=== PATIENT | female | born 1965 | race Caucasian/White ===

== ENCOUNTER 2017-01-29 09:42 | Emergency (ER) | payer OTHER, BC ==
[~2017-01-29] VITALS: Ht 149.9 cm; Wt 60.0 kg
[2017-01-29 09:49] VITALS: BP 132/86; PULSE 83; RESP 16; TEMP 99; O2SAT 99
[2017-01-29] MEDS ORDERED: HYDROmorphone HCL PF 1 MG/ML VIAL IVS ONE (10:00)
[2017-01-29] MEDS ORDERED: ONDANSETRON HCL 4 MG/2 ML VIAL IVP ONE (10:00)
[2017-01-29] MEDS ORDERED: SODIUM CHLORIDE 0.9% FLUSH 10 ML FLUSH IVF PRN (10:00)
[2017-01-29] MEDS ORDERED: ALBUAER3 INH (10:01)
[2017-01-29] MEDS ORDERED: AZEL0.055 EACH NARE (10:01)
[2017-01-29] MEDS ORDERED: SYMB160A INH (10:01)
[2017-01-29] MEDS ORDERED: FLUT50SP EACH NARE (10:01)
--- NOTE | 2017-01-29 10:04 | PD ---
HPI Chief Complaint: Headache Time Seen by Provider: 09:57 Travel History International Travel<30 days: No Contact w/Intl Traveler<30days: No Traveled to known affect area: No History of Present Illness HPI Patient presents with complaints of severe headache that started after cervical adjustment by her PCP. Denies any aura. Denies any photophobia. Denies any nausea or vomiting. Headache is diffuse without localization. It is not the worst headache she's ever had. History of intermittent headaches over the last several years. Evaluated by neurology with imaging which was negative. Patient was not diagnosed with migraines. Denies . PFSH Past Medical History Diminished Hearing: No Headaches: Yes Tetanus Vaccination: Unknown ?: Not LMP: MENOPAUSAL Past Surgical History Tonsillectomy: Yes Social History Alcohol Use: Yes (RARE) Tobacco Use: No Substance Use: No Allergies-Medications (Allergen,Severity, Reaction): Coded Allergies: No Known Allergies (Unverified , 01/29/17) Reported Meds & Prescriptions Reported Meds & Active Scripts Active Reported Azelastine Nasal [place] (Azelastine HCl) 0.15% [place] 1 [place] EACH NARE DAILY To each nostril. Proair Hfa 8.5 GM Inh (Albuterol Sulfate) 90 Mcg/Act Aer 1 Puff INH Q4H PRN 108 mcg/actuation Fluticasone Nasal [place] 50 Mcg/Act Naspr 50 Mcg EACH NARE BID 50 mcg/spray Symbicort Inh (Budesonide/Formoterol Fumarate) 160-4.5 Mcg/Act Aero 2 Puff INH BID Review of Systems General / Constitutional: No: Fever Eyes: No: Visual changes HENT: Positive: Headaches Cardiovascular: No: Chest Pain or Discomfort Respiratory: No: Shortness of Breath Gastrointestinal: No: Abdominal Pain Genitourinary: No: Dysuria Musculoskeletal: No: Pain Skin: No Rash Neurologic: No: Weakness Psychiatric: No: Depression Endocrine: No: Polydipsia Hematologic/Lymphatic: No: Easy Bruising Physical Exam Narrative GENERAL: Well-nourished, well-developed patient. SKIN: Focused skin assessment warm/dry. HEAD: Normocephalic. Examination of the cervical spine reveals no midline tenderness no paraspinous pain good range of motion EYES: No scleral icterus. No injection or drainage. NECK: Supple, trachea midline. No JVD or lymphadenopathy. CARDIOVASCULAR: Regular rate and rhythm without murmurs, gallops, or rubs. RESPIRATORY: Breath sounds equal bilaterally. No accessory muscle use. GASTROINTESTINAL: Abdomen soft, non-tender, nondistended. MUSCULOSKELETAL: No cyanosis, or edema. BACK: Nontender without obvious deformity. No CVA tenderness. Data Data Last Documented VS Vital Signs Date Time Temp Pulse Resp B/P Pulse Ox O2 Delivery O2 Flow Rate FiO2 01/29/17 10:25 89 16 145/76 99 Room Air 01/29/17 09:49 99.0 Orders Complete Blood Count With Diff (01/29/17 09:57) Comprehensive Metabolic Panel (01/29/17 09:57) [place]gren Sedimentation Rate (01/29/17 09:57) Iv Access Insert/Monitor (01/29/17 09:57) Oximetry (01/29/17 09:57) Sodium Chloride 0.9% Flush (Ns Flush) (01/29/17 10:00) Ondansetron Inj (Zofran Inj) (01/29/17 10:00) Hydromorphone Pf Inj (Dilaudid Pf Inj) (01/29/17 10:00) Hydromorphone Pf Inj (Dilaudid Pf Inj) (01/29/17 11:00) Labs Laboratory Tests Test 01/29/17 10:00 White Blood Count 7.0 TH/MM3 Red Blood Count 4.81 MIL/MM3 Hemoglobin 14.3 GM/DL Hematocrit 42.5 % Mean Corpuscular Volume 88.3 FL Mean Corpuscular Hemoglobin 29.7 PG Mean Corpuscular Hemoglobin 33.7 % Concent Red Cell Distribution Width 12.0 % Platelet Count 246 TH/MM3 Mean Platelet Volume 7.3 FL Neutrophils (%) (Auto) 72.3 % Lymphocytes (%) (Auto) 18.4 % Monocytes (%) (Auto) 6.9 % Eosinophils (%) (Auto) 1.6 % Basophils (%) (Auto) 0.8 % Neutrophils # (Auto) 5.0 TH/MM3 Lymphocytes # (Auto) 1.3 TH/MM3 Monocytes # (Auto) 0.5 TH/MM3 Eosinophils # (Auto) 0.1 TH/MM3 Basophils # (Auto) 0.1 TH/MM3 CBC Comment DIFF FINAL Differential Comment Erythrocyte Sedimentation Rate 4 mm/hr Sodium Level 143 MEQ/L Potassium Level 3.5 MEQ/L Chloride Level 108 MEQ/L Carbon Dioxide Level 30.4 MEQ/L Anion Gap 5 MEQ/L Blood Urea Nitrogen 10 MG/DL Creatinine 0.82 MG/DL Estimat Glomerular Filtration 73 ML/MIN Rate Random Glucose 122 MG/DL Calcium Level 8.4 MG/DL Total Bilirubin 0.4 MG/DL Aspartate Amino Transf 17 U/L (AST/SGOT) Alanine Aminotransferase 24 U/L (ALT/SGPT) Alkaline Phosphatase 81 U/L Total Protein 7.1 GM/DL Albumin 3.8 GM/DL [facility] Medical Decision Making Medical Screen Exam Complete: Yes Emergency Medical Condition: Yes Differential Diagnosis Tension headache, cluster headache, CVA, migraine Narrative Course Assessment and plan discussed with patient and at bedside. Headache resolved with pain medication. Diagnosis Primary Impression: Cephalgia Qualified Code: R51 - Nonintractable episodic headache, unspecified headache type Patient Instructions: General Instructions Additional Instructions: Encouraged rest fluids and Motrin. Follow-up with PCP. Continue with neurology. Return to the emergency room with any worsening of symptoms. Med/Other Pt SpecificInfo: Prescription(s) given Scripts Ikresqcdur-Uukbjdc-Dknuohkc-Codeine (Fiorinal-Codeine #3)[id number] Mg Cap1-2 Cap PO Q4H PRN (HEADACHE) #20 CAP Ref 0 Do not exceed 6 capsules/day. Prov:James Esquivel MD 01/29/17 Disposition: 01 DISCHARGE HOME Condition: Good James Esquivel MD Jan 29, 2017 10:03
[2017-01-29 10:12] VITALS: PULSE 115; RESP 16; O2SAT 100
[2017-01-29 10:15] LABS: BASOPHIL # 0.1 TH/MM3 (0-0.2); BASOPHIL % 0.8 % (0.0-2.0); EOSINOPHIL # 0.1 TH/MM3 (0-0.4); EOSINOPHIL % 1.6 % (0.0-4.0); HEMATOCRIT 42.5 % (35.0-46.0); HEMO FLAGS DIFF FINAL; LYMPH % 18.4 % (9.0-44.0); LYMPHOCYTE # 1.3 TH/MM3 (1.0-4.8); MEAN CELL VOLUME 88.3 FL (80.0-100.0); MEAN CORPUSCULAR HEMOGLOBIN 29.7 PG (27.0-34.0); MEAN CORPUSCULAR HGB CONC 33.7 % (32.0-36.0); MONO % 6.9 % (0.0-8.0); NEUT % 72.3 % (16.0-70.0); PLATELET COUNT 246 TH/MM3 (150-450); RED BLOOD COUNT 4.81 MIL/MM3 (4.00-5.30)
[2017-01-29 10:21] LABS: CHLORIDE 108 MEQ/L (98-107); POTASSIUM 3.5 MEQ/L (3.5-5.1); SODIUM (NA) 143 MEQ/L (136-145)
[2017-01-29 10:25] VITALS: BP 145/76; PULSE 89; RESP 16; O2SAT 99
[2017-01-29 10:25] LABS: ANION GAP 5 MEQ/L (5-15); BICARBONATE 30.4 MEQ/L (21.0-32.0); BLOOD UREA NITROGEN 10 MG/DL (7-18)
[2017-01-29 10:28] LABS: ALT (GPT) 24 U/L (10-53); AST (GOT) 17 U/L (15-37); GLOMERULAR FILTRATION RATE 73 ML/MIN (>89)
[2017-01-29 10:29] LABS: TOTAL BILIRUBIN ADULT 0.4 MG/DL (0.2-1.0)
[2017-01-29 10:31] LABS: ALKALINE PHOSPHATASE 81 U/L (45-117)
[2017-01-29] MEDS ORDERED: HYDROmorphone HCL PF 1 MG/ML VIAL IV PUSH ONE (11:00)
[2017-01-29] MEDS ORDERED: FIOR30CA12 PO (11:30)
[2017-01-29 11:33] VITALS: BP 141/72
== END 2017-01-29 11:43 | disposition home or self-care (01) ==
LOC: PHED 09:42
DX: R51 Headache (principal)
CPT/HCPCS: 80053; 85025; 85652; 96374; 96375; 96376; 99284; J1170; J2405